=== PATIENT | female | born 1950 | race Caucasian/White ===

== ENCOUNTER 2017-06-05 07:01 | Day surgery (SDC) | payer OTHER ==
[2017-06-03 13:15] LABS: Urine Bilirubin Negative (Negative); Urine Blood Negative /uL (Negative); Urine Color Yellow (Yellow); Urine Glucose Normal (Normal); Urine Ketone Negative (Negative); Urine Nitrite Negative (Negative); Urine RBC 1 /hpf (0 - 4); Urine Squamous Epithelial Cell FEW /hpf (<5); Urine Urobilinogen Normal (Negative)
[2017-06-03 13:18] LABS: Basophils # (auto) 0 uL; Basophils % (auto) 0.5 % (0.0-2.0); CONDITION Y; Eosinophils # (auto) 0.1 uL; Hematocrit 42.1 % (36.0-46.0); Lymphocytes # (auto) 2.2 uL; Mean Corpuscular Hemoglobin 31.7 pg (28.0-32.0); Mean Corpuscular Hgb Conc. 33.2 g/dL (32.0-36.0); Mean Corpuscular Volume 95.4 fL (80.0-100.0); Mean Platelet Volume 8.8 fL (7.4-10.4); Monocytes # (auto) 0.5 uL; Monocytes % (auto) 7.2 % (0.0-12.0); Neutrophils % (auto) 58.3 % (37.0-80.0); Platelet Count (auto) 366 10^3/uL (140-450); Red Cell Distribution Width 13.8 % (11.6-16.0); White Blood Cell 6.9 10^3/uL (4.4-10.8)
[2017-06-03 13:29] LABS: INR 0.92 (0.9-1.15)
[2017-06-03 14:19] LABS: BUN/Creatinine Ratio 26.2; Potassium 3.5 mmol/L (3.5-5.1)
[~2017-06-05] VITALS: Ht 162.6 cm; Wt 78.0 kg
[~2017-06-05 07:01] MED LIST: ALEN70TA2 PO; CHOL20004 PO; ESOM40CA39 PO; LEV100T PO; LORA1TAB12 PO; MONT10TA23 PO; POTA20TA53 PO; SIMV-13 PO; TRIA75TA55 PO; VALS80TA42 PO
[2017-06-05] MEDS ORDERED: ONDANSETRON HCL 4 MG/2 ML VIAL ONE (07:47)
[2017-06-05] MEDS ORDERED: ceFAZolin 1GM/50ML D5W 50 ML IV ONE (07:47)
[2017-06-05] MEDS ORDERED: PROPOFOL 10 MG/ML 20 ML IV ONE ×2 (07:47→08:50)
[2017-06-05] MEDS ORDERED: SODIUM CHLORIDE LOCK 20 ML ONE (07:47)
[2017-06-05] MEDS ORDERED: fentaNYL CITRATE 100 MCG/2 ML VL ONE (07:47)
[2017-06-05] MEDS ORDERED: MIDAZOLAM HCL 1MG/1ML-2 ML VIAL ONE ×2 (07:47→09:17)
[2017-06-05] MEDS ORDERED: HYDROmorphone HCL 2 MG/ML VL IV PRN (10:15)
[2017-06-05] MEDS ORDERED: KETOROLAC TROMETH 30 MG/ML 1ML VIAL IV ONE (10:15)
[2017-06-05] MEDS ORDERED: METOCLOPRAMIDE HCL 5MG/ml INJ 2ml VIAL IV ONE (10:15)
[2017-06-05 11:30] VITALS: BP 177/92
== END 2017-06-05 11:43 | disposition home or self-care (01) ==
LOC: SUR 07:01
PROVIDERS: ATTEND Urology
DX: N13.2 Hydronephrosis with renal and ureteral calculous obstruction (principal); E07.9 Disorder of thyroid, unspecified; Z82.49 Family history of ischemic heart disease and other diseases of the circulatory system; I13.10 Hypertensive heart and chronic kidney disease without heart failure, with stage 1 through stage 4 chronic kidney disease, or unspecified chronic kidney disease; N18.2 Chronic kidney disease, stage 2 (mild); J45.909 Unspecified asthma, uncomplicated
CPT/HCPCS: 36415; 50590; 80048; 81001; 85025; 85610; 85730; 87086; J0690; J2250; J2405; J2704; J3010